=== PATIENT | female | born 1945 ===

== ENCOUNTER 2024-06-13 08:26 | Outpatient (CLI) | payer OTHER ==
[2024-06-13 10:35] LABS: PARTIAL THROMBOPLASTIN TIME 27.6 SECONDS (22.0-34.0); PROTHROMBIN TIME 10.9 SECONDS (9.0-11.5)
[2024-06-13 10:55] LABS: ALBUMIN 3.7 gm/dL (3.4-5.0); BILIRUBIN TOTAL 0.61 mg/dL (0.3-1.2); CALCIUM 9.3 mg/dL (8.5-10.1); CREATININE SERUM 0.76 mg/dL (0.55-1.02); GFR 73.22; GLOBULINA 2.9 G/DL (2.4-3.5); POTASSIUM 4.01 mEq/L (3.5-5.1); TOTAL PROTEIN 6.6 gm/dL (6.4-8.2)
[2024-06-13 11:03] LABS: HEMATOCRIT 39.9 % (36.0-45.00); MEAN CORPUSCULAR HEMOGLOBIN 28.1 pg (27.00-32.0); MEAN CORPUSCULAR HGB CONC 32.6 g/dl (32.0-36.0); PLATELET COUNT 215 K/uL (150-450); RED BLOOD COUNT 4.64 M/uL (4.00-6.00); RED CELL DISTRIBUTION WIDTH 15.3 % (11.5-14.5)
[2024-06-13 11:16] LABS: URINE APPEARANCE CLEAR; URINE BILIRRUBIN NEGATIVE (NEGATIVE); URINE BLOOD 10; URINE COLOR YELLOW; URINE GLUCOSE NEGATIVE (NEGATIVE); URINE KETONE NEGATIVE (NEGATIVE); URINE LEUKOCYTE NEGATIVE; URINE NITRATE NEGATIVE; URINE PROTEIN TRACE (NEGATIVE); URINE RBC 13.6 uL (0.0-20.8); URINE UROBILINOGEN 0.2 E.U./dl
[2024-06-13 11:17] LABS: URINE BACTERIA 209.2 uL (0.0-1933); URINE EPITHELIAL CELLS 22.7 uL (0.0-38.8); URINE WBC 5.3 uL (0.0-23.2)
== END 2024-06-13 08:27 | disposition home or self-care (01) ==
LOC: LAB 08:26
PROVIDERS: ATTEND Colon & Rectal Surgery
DX: K64.2 Third degree hemorrhoids (principal); K92.1 Melena; K57.30 Diverticulosis of large intestine without perforation or abscess without bleeding; K59.09 Other constipation; N81.6 Rectocele

== ENCOUNTER 2024-06-22 06:09 | Day surgery (SDC) | payer OTHER ==
[~2024-06-22 06:09] MED LIST: ATACAND32 MG PO; ATORVASTATIN CA10 MG PO; DEXILANT60 MG PO; LEXAPRO5 MG PO; PEPCID40 MG PO; PROBIOTIC250 MG PO; SYNTHROID50 MCG PO; TERAZOSIN HCL5 MG PO
[2024-06-22] MEDS ORDERED: DIBUCAINE 30 GM TUBE ONE (07:09)
[2024-06-22] MEDS ORDERED: BUPIVACAINE HCL/MPF 0.5% 30ML VIAL ONE (07:09)
[2024-06-22] MEDS ORDERED: HEMOSTATIC MATRIX 1 KIT KIT TOP ONE (07:10)
[2024-06-22] MEDS ORDERED: POVIDONE-IODINE 118 ML BOTT TOP ONE (07:10)
[2024-06-22] MEDS ORDERED: LIDOCAINE HCL 1%/EPINEPHRINE 20ML VIAL IJ ONE (07:10)
[2024-06-22] MEDS ORDERED: METRONIDAZOLE/SODIUM CHLORIDE 500 MG/100 ML PIGGYBACK IV ONE (07:19)
[2024-06-22] MEDS ORDERED: CEFTRIAXONE SODIUM 2,000 MG VIAL ONE (07:19)
[2024-06-23 09:07] LABS: hav igm Negative (Negative); hcv Non Reactive (Non Reactive); hep b c Negative (Negative); hep b s ag Negative (Negative)
== END 2024-06-22 14:55 | disposition home or self-care (01) ==
LOC: CIR.AMB 06:09
PROVIDERS: ATTEND Colon & Rectal Surgery
DX: N81.6 Rectocele (principal); R15.9 Full incontinence of feces; K64.8 Other hemorrhoids